=== PATIENT | female | born 1995 | race Caucasian/White ===

== ENCOUNTER → 2019-04-25 | Outpatient (CLI) | payer MEDICAID | LOC: CARD 08:39 | PROVIDERS: ATTEND Family Medicine | DX: R00.0 Tachycardia, unspecified (principal) | CPT/HCPCS: 93306 ==

== ENCOUNTER → 2019-10-31 | Outpatient (CLI) | payer MEDICAID | END | disposition home or self-care (01) | LOC: PREOP 05:37 | PROVIDERS: ATTEND Surgery | DX: Z01.818 Encounter for other preprocedural examination (principal) ==

== ENCOUNTER 2020-03-02 05:35 | Outpatient (RCR) | payer MEDICAID | END 2020-05-30 | disposition home or self-care (01) | LOC: PREOP 05:35 | PROVIDERS: ATTEND Surgery | DX: Z01.818 Encounter for other preprocedural examination (principal) ==

== ENCOUNTER 2020-03-26 05:48 | Outpatient (RCR) | payer MEDICAID | END 2020-06-24 | disposition home or self-care (01) | LOC: PREOP 05:48 | PROVIDERS: ATTEND Surgery | DX: Z01.818 Encounter for other preprocedural examination (principal) ==

== ENCOUNTER → 2020-11-01 | Outpatient (CLI) | payer MEDICAID ==
[2020-11-01 17:03] LABS: BASOPHILS % (AUTO) 0 % (0-10); EOSINOPHILS % (AUTO) 1 % (0-10); HEMATOCRIT 36 % (35-52); HEMOGLOBIN 12.8 G/DL (11.5-16.0); LYMPHOCYTES # (AUTO) 1.5 X 10^3 (1.0-4.0); LYMPHOCYTES % (AUTO) 17 % (12-44); MEAN CORPUSCULAR HEMOGLOBIN 32 PG (25-34); MEAN CORPUSCULAR HGB CONC 35 G/DL (32-36); MEAN CORPUSCULAR VOLUME 90 FL (80-99); MEAN PLATELET VOLUME 9.8 FL (7.4-10.4); MONOCYTES % (AUTO) 4 % (0-12); NEUTROPHILS # (AUTO) 6.6 X 10^3 (1.8-7.8); NEUTROPHILS % (AUTO) 78 % (42-75); PLATELET COUNT 318 10^3/uL (130-400); WHITE BLOOD COUNT 8.5 10^3/uL (4.3-11.0)
[2020-11-01 17:04] LABS: EOSINOPHILS # (AUTO) 0.1 10^3/uL (0.0-0.3); MONOCYTES # (AUTO) 0.3 X 10^3 (0.0-1.0)
[2020-11-01 17:12] LABS: BACTERIA,URINE LARGE /HPF; BILIRUBIN,URINE NEGATIVE (NEGATIVE); CLARITY,URINE SL CLOUDY; COLOR,URINE YELLOW; GLUCOSE, URINE (UA) NEGATIVE (NEGATIVE); KETONES,URINE NEGATIVE (NEGATIVE); LEUKOCYTE ESTERASE ,URINE NEGATIVE (NEGATIVE); NITRITE,URINE NEGATIVE (NEGATIVE); PROTEIN,URINE NEGATIVE (NEGATIVE); RBC,URINE 0-2 /HPF
== END ==
LOC: LAB FS 15:20
PROVIDERS: ATTEND Family Medicine
DX: O99.891 Other specified diseases and conditions complicating pregnancy (principal); R30.9 Painful micturition, unspecified; Z3A.00 Weeks of gestation of pregnancy not specified
CPT/HCPCS: 36415; 80055; 81000; 86703; 86762; 86780; 87088

== ENCOUNTER → 2020-11-19 | Outpatient (CLI) | payer MEDICAID | LOC: LABNPT 15:41 | PROVIDERS: ATTEND Family Medicine | DX: Z33.1 Pregnant state, incidental (principal) | CPT/HCPCS: 87491; 87591 ==

== ENCOUNTER → 2020-11-22 | Outpatient (CLI) | payer MEDICAID ==
[2020-11-22 15:29] LABS: FREE T4 (FREE THYROXINE) 0.9 NG/DL (0.70-1.48)
== END ==
LOC: LAB FS 09:23
PROVIDERS: ATTEND Family Medicine
DX: L65.9 Nonscarring hair loss, unspecified (principal)
CPT/HCPCS: 36415; 84439; 84443

== ENCOUNTER → 2020-12-17 | Outpatient (CLI) | payer MEDICAID | LOC: LAB FS 09:41 | PROVIDERS: ATTEND Family Medicine | DX: Z34.91 Encounter for supervision of normal pregnancy, unspecified, first trimester (principal) | CPT/HCPCS: 36415; 82105; 82677; 84702; 86336; 86695; 86696 ==

== ENCOUNTER → 2021-01-01 | Outpatient (CLI) | payer MEDICAID | LOC: LAB FS 10:30 | PROVIDERS: ATTEND Family Medicine | DX: Z76.89 Persons encountering health services in other specified circumstances (principal); Z20.822 Contact with and (suspected) exposure to COVID-19 | CPT/HCPCS: 87635 ==

== ENCOUNTER → 2021-01-18 | Outpatient (CLI) | payer MEDICAID ==
--- NOTE | 2021-02-07 18:39 | Diagnostic Imaging Report ---
INDICATION: patient, survey. TECHNIQUE: Multiple real-time grayscale images were obtained over the gravid uterus. COMPARISON: None. FINDINGS: A single live intrauterine fetus is seen measuring 23 weeks 0 days in size by composite measurements. The fetus is in breech presentation at this time. Placenta is posterior with no evidence of previa. The distance from the internal os to the tip of the placenta is 8.6 x 6.5 cm. Cervical length is 4.2 cm. heart rate is 144 bpm. Maternal adnexa were not well visualized. survey demonstrates normal appearance of the kidneys and bladder. Normal-appearing stomach was seen. Intracranial ventricles appear normal. Four-chamber heart view and spine views were normal. Three-vessel cord was seen but the cord insertion could not be well visualized due to position. Biometrical measurements are as follows: Biparietal 5.43 cm, age 22 weeks 4 days. Head circumference 21.04 cm, age 23 weeks 1 days. Abdominal circumference 18.06 cm, age 23 weeks 0 days. Femur length 4.09 cm, age 23 weeks 2 days. Sonographic estimate age: 23 weeks 0 days. Sonographic estimated date of delivery: 06/06/2021. Estimated Weight: 558 gm (+/- 82 gm). LMP percentile: 60%. heart rate: 144 beats per minute. number: 1 of 1. IMPRESSION: Single live intrauterine fetus measuring 23 weeks 0 days in size. There is no detectable abnormality, although cord insertion was not well seen due to position. Consider limited follow-up as clinically warranted. The study is otherwise unremarkable. Dictated by: Dictated on workstation # [id number]
== END ==
LOC: RAD FS 11:35
PROVIDERS: ATTEND Family Medicine
DX: Z34.92 Encounter for supervision of normal pregnancy, unspecified, second trimester (principal); Z3A.23 23 weeks gestation of pregnancy

== ENCOUNTER → 2021-02-26 | Outpatient (CLI) | payer MEDICAID | LOC: LAB FS 18:24 | PROVIDERS: ATTEND Family Medicine | DX: U07.1 COVID-19 (principal) | CPT/HCPCS: 36415; 86769 ==

== ENCOUNTER → 2021-03-12 | Outpatient (CLI) | payer MEDICAID ==
[2021-03-12 11:18] LABS: BASOPHILS % (AUTO) 0 % (0-10); EOSINOPHILS % (AUTO) 0 % (0-10); HEMATOCRIT 32 % (35-52); HEMOGLOBIN 11.2 G/DL (11.5-16.0); LYMPHOCYTES # (AUTO) 1.2 X 10^3 (1.0-4.0); LYMPHOCYTES % (AUTO) 17 % (12-44); MEAN CORPUSCULAR HEMOGLOBIN 33 PG (25-34); MEAN CORPUSCULAR HGB CONC 35 G/DL (32-36); MEAN CORPUSCULAR VOLUME 92 FL (80-99); MEAN PLATELET VOLUME 9.4 FL (7.4-10.4); MONOCYTES # (AUTO) 0.2 X 10^3 (0.0-1.0); MONOCYTES % (AUTO) 3 % (0-12); NEUTROPHILS # (AUTO) 5.5 X 10^3 (1.8-7.8); NEUTROPHILS % (AUTO) 79 % (42-75); PLATELET COUNT 274 10^3/uL (130-400)
== END ==
LOC: LAB FS 10:24
PROVIDERS: ATTEND Family Medicine
DX: Z34.91 Encounter for supervision of normal pregnancy, unspecified, first trimester (principal); Z3A.00 Weeks of gestation of pregnancy not specified
CPT/HCPCS: 36415; 82950; 85025; 86592

== ENCOUNTER → 2021-03-18 | Outpatient (CLI) | payer MEDICAID | LOC: LAB FS 10:14 | PROVIDERS: ATTEND Family Medicine | DX: R73.09 Other abnormal glucose (principal) | CPT/HCPCS: 36415; 82951; 82952 ==

== ENCOUNTER 2021-04-03 13:03 | Emergency (ER) | payer MEDICAID ==
[~2021-04-03] VITALS: Ht 154 cm; Wt 100.0 kg
[2021-04-03 13:08] VITALS: BP 152/93
[2021-04-03] MEDS ORDERED: NS IV 1000 ML 1,000 ML IV SCH ×2 (13:30→16:45)
--- NOTE | 2021-04-03 13:32 | ED Cardiac General ---
History of Present Illness General Chief Complaint: Cardiac/General Problems Stated Complaint: ELEV HR Nursing Triage Note: PT REPORTS A RAPID HEART RATE THAT STARTED THIS AM WITH SHORTNESS OF BREATH. HEART RATE 130-165. Source: patient Exam Limitations: no limitations History of Present Illness Date Seen by Provider: Apr 03, 2021 Time Seen by Provider: 13:09 Initial Comments 25-year-old female @31 weeks presents with onset of rapid heart rate this morning around 8 AM. Patient was at home heart rate racing, she checked her pulse it was about 130. She started drinking more water, lay down on her left side and tried rest thinking it would go away, but when she woke up from a nap it was still racing around 130-150. Patient denies any recent illness, fever chills or cough. She does have associated shortness of air while she is having a rapid heart rate. She did receive her second dose of a Covid vaccination yesterday. OB care @ [facility] Allergies and Home Medications Allergies Coded Allergies: No Known Drug Allergies (Unverified , 04/03/21) Patient Home Medication List Home Medication List Reviewed: Yes Review of Systems Review of Systems Constitutional: No chills, No dizziness, No fever, No malaise, No weakness EENTM: No Symptoms Reported Respiratory: See HPI; Denies Cough; SOA at Rest; Denies Stridor, Denies Wheezing Cardiovascular: See HPI; Denies Chest Pain, Denies Edema, Denies Lightheadedness; Palpitations (rapid HR); Denies Syncope Gastrointestinal: Denies Abdominal Pain, Denies Nausea, Denies Poor Appetite, Denies Vomiting Musculoskeletal: No back pain, No joint pain; other (no extremity or calf pain) Skin: No change in color, No lesions, No rash Psychiatric/Neurological: Denies Headache, Denies Numbness, Denies Paresthesia Hematologic/Lymphatic: Denies Anemia, Denies Blood Clots, Denies Easy Bleeding, Denies Easy Bruising, Denies Swollen Glands Past Hvmvnze-Dlymmy-Bktplu Hx Patient Social History Tobacco Use?: No Use of E-Cig and/or Vaping dev: No Substance use?: No Alcohol Use?: No Pt feels they are or have been: No Immunizations Up To Date First/Initial COVID19 Vaccinat: MARCH 2021 Second COVID19 Vaccination Regan: APRIL 02, 2021 COVID19 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 oz. kg; 42.00 BMI Method: General Appearance: No Apparent Distress, WD/WN HEENT: PERRL/EOMI, Normal ENT Inspection Neck: Full Range of Motion, Non Tender, Supple Respiratory: Chest Non Tender, Lungs Clear, Normal Breath Sounds, No Accessory Muscle Use, No Respiratory Distress Cardiovascular: No Edema, No Gallop, No JVD, Tachycardia Gastrointestinal: Non Tender, Soft, Other (gravid - size c/w/d) Extremity: Normal Capillary Refill, Non Tender Neurologic/Psychiatric: Alert, Oriented x3, No Motor/Sensory Deficits, Normal Mood/Affect Skin: Normal Color, Warm/Dry; No Cyanosis, No Erythema Progress/Results/Core Measures Results/Orders Lab Results Laboratory Tests Test 04/03/21 13:25 04/03/21 13:34 Range/Units White Blood Count 6.2 4.3-11.0 10^3/uL Red Blood Count 3.47 L 3.80-5.11 10^6/uL Hemoglobin 11.3 L 11.5-16.0 g/dL Hematocrit 32 L 35-52 % Mean Corpuscular Volume 91 80-99 fL Mean Corpuscular Hemoglobin 33 25-34 pg Mean Corpuscular Hemoglobin Concent 36 32-36 g/dL Red Cell Distribution Width 13.1 10.0-14.5 % Platelet Count 244 130-400 10^3/uL Mean Platelet Volume 9.5 9.0-12.2 fL Immature Granulocyte % (Auto) 0 % Neutrophils (%) (Auto) 89 H 42-75 % Lymphocytes (%) (Auto) 7 L 12-44 % Monocytes (%) (Auto) 3 0-12 % Eosinophils (%) (Auto) 0 0-10 % Basophils (%) (Auto) 0 0-10 % Neutrophils # (Auto) 5.6 1.8-7.8 X 10^3 Lymphocytes # (Auto) 0.5 L 1.0-4.0 X 10^3 Monocytes # (Auto) 0.2 0.0-1.0 X 10^3 Eosinophils # (Auto) 0.0 0.0-0.3 10^3/uL Basophils # (Auto) 0.0 0.0-0.1 10^3/uL Immature Granulocyte # (Auto) 0.0 0.0-0.1 10^3/uL Neutrophils % (Manual) 87 % Lymphocytes % (Manual) 7 % Monocytes % (Manual) 1 % Eosinophils % (Manual) 0 % Basophils % (Manual) 0 % Band Neutrophils 5 % D-Dimer 1.90 H 0.00-0.49 UG/ML Sodium Level 138 135-145 MMOL/L Potassium Level 3.4 L 3.6-5.0 MMOL/L Chloride Level 106 98-107 MMOL/L Carbon Dioxide Level 23 21-32 MMOL/L Anion Gap 9 5-14 MMOL/L Blood Urea Nitrogen 5 L 7-18 MG/DL Creatinine 0.53 L 0.60-1.30 MG/DL Estimat Glomerular Filtration Rate 141 BUN/Creatinine Ratio 9 Glucose Level 115 H 70-105 MG/DL Calcium Level 9.5 8.5-10.1 MG/DL Corrected Calcium 10.0 8.5-10.1 MG/DL Total Bilirubin 0.3 0.1-1.0 MG/DL Aspartate Amino Transf (AST/SGOT) 15 5-34 U/L Alanine Aminotransferase (ALT/SGPT) 15 0-55 U/L Alkaline Phosphatase 72 40-136 U/L Total Protein 6.1 L 6.4-8.2 GM/DL Albumin 3.4 3.2-4.5 GM/DL Urine Color YELLOW Urine Clarity CLEAR Urine pH 7.5 5-9 Urine Specific [place] 1.010 L 1.016-1.022 Urine Protein NEGATIVE NEGATIVE Urine Glucose (UA) NEGATIVE NEGATIVE Urine Ketones NEGATIVE NEGATIVE Urine Nitrite NEGATIVE NEGATIVE Urine Bilirubin NEGATIVE NEGATIVE Urine Urobilinogen 0.2 < = 1.0 MG/DL Urine Leukocyte Esterase NEGATIVE NEGATIVE Urine RBC (Auto) NEGATIVE NEGATIVE Urine RBC RARE /HPF Urine WBC RARE /HPF Urine Squamous Epithelial Cells 0-2 /HPF Urine Crystals NONE /LPF Urine Bacteria NEGATIVE /HPF Urine Casts NONE /LPF Urine Mucus NEGATIVE /LPF Urine Culture Indicated NO My Orders Orders - ROVENSTINE,EDI L DO Ed Iv/Invasive Line Start (04/03/21 13:15) Cbc With Automated Diff (04/03/21 13:15) Comprehensive Metabolic Panel (04/03/21 13:15) Fibrin Degradation Products (04/03/21 13:15) Chest 1 View Ap/Pa Only (04/03/21 13:15) Ekg Tracing (04/03/21 13:15) Urinalysis (04/03/21 13:15) Ns Iv 1000 Ml (Sodium Chloride 0.9%) (04/03/21 13:30) Manual Differential (04/03/21 13:25) Enoxaparin Injection (Lovenox Injection) (04/03/21 14:15) Ct Angio Chest W (04/03/21 14:21) Iohexol Injection (Omnipaque 350 Mg/Ml 1 (04/03/21 14:45) Di Iv Start (Assessment) .IV start (04/03/21 14:37) Received Contrast (Hold Metformin- Contr (04/03/21 14:45) Sodium Chloride Flush (Catheter Flush Sy (04/03/21 14:45) Ns (Ivpb) (Sodium Chloride 0.9% Ivpb Bag (04/03/21 14:45) Metoprolol Tartrate Injection (Lopressor (04/03/21 15:15) Metoprolol Tartrate Injection (Lopressor (04/03/21 16:00) Metoprolol Tartrate (Ir) Tab (Lopressor (04/03/21 16:00) Acetaminophen Tablet (Tylenol Tablet) (04/03/21 16:30) Ns Iv 1000 Ml (Sodium Chloride 0.9%) (04/03/21 16:45) Metoprolol Tartrate Injection (Lopressor (04/03/21 16:45) Medications Given in ED Current Medications Medications Dose Ordered Sig/Alexander Route Start Time Stop Time Status Last Admin Dose Admin Acetaminophen 1,000 mg ONCE ONCE PO 04/03/21 16:30 04/03/21 16:32 DC 04/03/21 16:34 1,000 MG Enoxaparin Sodium 100 mg ONCE ONCE SC 04/03/21 14:15 04/03/21 14:16 DC 04/03/21 14:20 100 MG Iohexol 100 ml ONCE ONCE IV 04/03/21 14:45 04/03/21 14:46 DC 04/03/21 14:55 100 ML Metoprolol Tartrate 5 mg ONCE ONCE IV 04/03/21 15:15 04/03/21 15:16 DC 04/03/21 15:19 5 MG Metoprolol Tartrate 5 mg ONCE ONCE IV 04/03/21 16:00 04/03/21 16:01 DC 04/03/21 15:58 5 MG Metoprolol Tartrate 5 mg ONCE ONCE IV 04/03/21 16:45 04/03/21 16:49 DC 04/03/21 16:54 5 MG Metoprolol Tartrate 25 mg ONCE ONCE PO 04/03/21 16:00 04/03/21 16:01 DC 04/03/21 15:58 25 MG Sodium Chloride 10 ml NEEDED PRN IV 04/03/21 14:45 04/03/21 17:30 DC 04/03/21 14:55 10 ML Sodium Chloride 100 ml ONCE ONCE IV 04/03/21 14:45 04/03/21 14:46 DC 04/03/21 14:55 100 ML Vital Signs/I&O 04/03/21 13:08 Temp 36.5 Pulse 143 Resp 20 B/P (MAP) 152/93 (112) Pulse Ox 100 O2 Delivery Room Air Blood Pressure Mean: 112 Progress Progress Note : Progress Note Called [facility] @ 1462, spoke to Dr Lara @ 1422.....discussed pt Hx, HPI and findings, rec CT angio to r/o PE. Patient given IV metoprolol 5mg x 3 w minimal slowing of her HR and temporarily. Also given Toprol 25 mg after 2nd IV dose. Pt HR never slowed below 115, and remained consistently 120's - 130's. Some mild SOA, without CP Patient and agree to transfer to [facility] to maintain continuity of care w her OB. Sent be POV, driven by her . awake, alert, VSS w exception of sinus tachycardia and in no distress or imminent danger Initial ECG Impression Date: Apr 03, 2021 Initial ECG Impression Time: 13:10 Initial ECG Rate: 130 Initial ECG Rhythm: S.Tach Initial ECG Intervals: Normal Initial ECG Impression: Normal Initial ECG Comparisson: No Previous ECG Available Comment non-specific T wave changes Diagnostic Imaging Diagonstic Imaging: CT Comments COMPARISON: There is no prior study for comparison. FINDINGS: Heart and mediastinal silhouette are normal in appearance. The lungs are clear. There is no pneumothorax or pleural fluid. IMPRESSION: Negative chest. Dictated by: Dictated on workstation # [id number] Dict: 04/03/21 1334 Trans: 04/03/21 1459 [facility] [id number] Interpreted by: JANETH DE LA GARZA MD Electronically signed by: JANETH DE LA GARZA MD 04/03/21 1459 Date of Exam:04/03/21 CT ANGIO CHEST W INDICATION: Tachycardia, elevated d-dimer. patient. TECHNIQUE: Multiple contiguous axial images were obtained through the chest after uneventful bolus administration of intravenous contrast. 3D reconstructed CTA MIP acquisitions were also performed. Auto Exposure Controls were utilized during the CT exam to meet ALARA standards for radiation dose reduction. COMPARISON: There is no prior CTA chest for comparison. FINDINGS: The pulmonary parenchymal vessels appear well opacified with no filling defects visualized. The thoracic aorta shows no evidence of aneurysm or dissection. The great vessel origins are patent. There is no pleural or pericardial fluid. There are no enlarged nodes in the mediastinum or balta. There are no enlarged axillary nodes or chest wall masses. The visualized portions of the upper abdomen are normal. The lung windows are clear. IMPRESSION: Negative CTA chest. Dictated on workstation # [id number] Dict: 04/03/21 1501 Trans: 04/03/21 1507 [id number] Interpreted by: JANETH DE LA GARZA MD Electronically signed by: Departure Impression Primary Impression: Sinus tachycardia Additional Impressions: Third trimester Elevated d-dimer Disposition: 02 XFER SHT-TRM HOSP Condition: Stable Transfer Transfer Reason: Patient preference (and continuity of OB care) Time Spoke to Accepting Phy: 16:56 Transfer Progress Notes Initial call to [facility] @ 1412 spoke to [facility]person [facility], Dr Lara @ 1422- who rec CTA Called again @ [address] Lara again and she accepts for [facility] to [facility] @ 9434 Departure-Patient Inst. Referrals: SKYLAR JAMES MD (PCP/Family) Primary Care Physician Patient Instructions: Tachycardia (DC) Add. Discharge Instructions: Call your OB doctor, tomorrow morning to discuss follow up and further instructions regarding treating your sinus tachycardia with medication. Return to the nearest ER for worsening of symptoms, chest pain, heart rate not controlled with medication. All discharge instructions reviewed with patient and/or family. Voiced understanding. EDI HEBERT DO Apr 03, 2021 13:32
[2021-04-03 13:40] LABS: HEMATOCRIT 32 % (35-52); HEMOGLOBIN 11.3 g/dL (11.5-16.0); MEAN CORPUSCULAR HEMOGLOBIN 33 pg (25-34); MEAN CORPUSCULAR HGB CONC 36 g/dL (32-36); MEAN CORPUSCULAR VOLUME 91 fL (80-99); MEAN PLATELET VOLUME 9.5 fL (9.0-12.2); PLATELET COUNT 244 10^3/uL (130-400); WHITE BLOOD COUNT 6.2 10^3/uL (4.3-11.0)
--- NOTE | 2021-04-03 13:41 | Diagnostic Imaging Report ---
INDICATION: Tachycardia and shortness of breath. TECHNIQUE: Frontal chest obtained at 01:14 p.m. COMPARISON: There is no prior study for comparison. FINDINGS: Heart and mediastinal silhouette are normal in appearance. The lungs are clear. There is no pneumothorax or pleural fluid. IMPRESSION: Negative chest. Dictated by: Dictated on workstation # [id number]
[2021-04-03 13:45] LABS: BASOPHILS % (AUTO) 0 % (0-10); EOSINOPHILS % (AUTO) 0 % (0-10); LYMPHOCYTES # (AUTO) 0.5 X 10^3 (1.0-4.0); LYMPHOCYTES % (AUTO) 7 % (12-44); MONOCYTES # (AUTO) 0.2 X 10^3 (0.0-1.0); MONOCYTES % (AUTO) 3 % (0-12); NEUTROPHILS # (AUTO) 5.6 X 10^3 (1.8-7.8); NEUTROPHILS % (AUTO) 89 % (42-75)
[2021-04-03 13:52] LABS: BACTERIA,URINE NEGATIVE /HPF; BILIRUBIN,URINE NEGATIVE (NEGATIVE); CLARITY,URINE CLEAR; COLOR,URINE YELLOW; GLUCOSE, URINE (UA) NEGATIVE (NEGATIVE); KETONES,URINE NEGATIVE (NEGATIVE); LEUKOCYTE ESTERASE ,URINE NEGATIVE (NEGATIVE); NITRITE,URINE NEGATIVE (NEGATIVE); PH,URINE 7.5 (5-9); PROTEIN,URINE NEGATIVE (NEGATIVE); RBC,URINE RARE /HPF; SQUAMOUS EPITHELIAL CELL,UR 0-2 /HPF; WBC,URINE RARE /HPF
[2021-04-03 14:04] LABS: BAND NEUTROPHILS 5 %; BASOPHILS % (MANUAL) 0 %; EOSINOPHILS % (MANUAL) 0 %; LYMPHOCYTES % (MANUAL) 7 %; MONOCYTES % (MANUAL) 1 %; NEUTROPHILS % (MANUAL) 87 %
[2021-04-03 14:06] LABS: ALBUMIN 3.4 GM/DL (3.2-4.5); BILIRUBIN,TOTAL 0.3 MG/DL (0.1-1.0); CALCIUM 9.5 MG/DL (8.5-10.1); CREATININE SERUM 0.53 MG/DL (0.60-1.30); POTASSIUM 3.4 MMOL/L (3.6-5.0); TOTAL PROTEIN 6.1 GM/DL (6.4-8.2)
[2021-04-03] MEDS ORDERED: ENOXAPARIN 100 MG/1 ML (LOVENOX) SYR SC ONE (14:15)
[2021-04-03] MEDS ORDERED: IOHEXOL 350 MG/ML 100 ML (OMNIPAQUE 350) VIAL IV ONE (14:45)
[2021-04-03] MEDS ORDERED: NS 100 ML (IVPB) BAG IV ONE (14:45)
[2021-04-03] MEDS ORDERED: HOLD METFORMIN - RECEIVED CONTRAST 20 ML VIAL IV SCH (14:45)
[2021-04-03] MEDS ORDERED: CATHETER FLUSH 10 ML SYR IV PRN (14:45)
--- NOTE | 2021-04-03 15:07 | Diagnostic Imaging Report ---
INDICATION: Tachycardia, elevated d-dimer. patient. TECHNIQUE: Multiple contiguous axial images were obtained through the chest after uneventful bolus administration of intravenous contrast. 3D reconstructed CTA MIP acquisitions were also performed. Auto Exposure Controls were utilized during the CT exam to meet ALARA standards for radiation dose reduction. COMPARISON: There is no prior CTA chest for comparison. FINDINGS: The pulmonary parenchymal vessels appear well opacified with no filling defects visualized. The thoracic aorta shows no evidence of aneurysm or dissection. The great vessel origins are patent. There is no pleural or pericardial fluid. There are no enlarged nodes in the mediastinum or balta. There are no enlarged axillary nodes or chest wall masses. The visualized portions of the upper abdomen are normal. The lung windows are clear. IMPRESSION: Negative CTA chest. Dictated by: Dictated on workstation # [id number]
[2021-04-03] MEDS ORDERED: meTOprolol 5 MG/5 ML (LOPRESSOR) VIAL IV ONE ×3 (15:15→16:45)
[2021-04-03] MEDS ORDERED: meTOprolol TARTRATE 25 MG (LOPRESSOR) TABLET PO ONE (16:00)
[2021-04-03] MEDS ORDERED: ACETAMINOPHEN 500 MG TAB (TYLENOL) PO ONE (16:30)
== END 2021-04-03 17:30 | disposition short-term general hospital (02) ==
LOC: EDUNIT# 13:03 → ER FS 13:05
DX: O99.413 Diseases of the circulatory system complicating pregnancy, third trimester (principal); R00.0 Tachycardia, unspecified; R79.1 Abnormal coagulation profile; Z3A.31 31 weeks gestation of pregnancy
CPT/HCPCS: 36415; 71045; 71275; 80053; 81000; 85007; 85027; 85379; 93005

== ENCOUNTER 2021-05-24 20:06 | Emergency (ER) | payer MEDICAID, OTHER ==
[2021-05-24] MEDS ORDERED: hydrALAZINE (APESOLINE) 20 MG/ML VIAL IV ONE (20:30)
--- NOTE | 2021-05-24 20:30 | ED Cardiac General ---
History of Present Illness General Chief Complaint: Cardiac/General Problems Stated Complaint: HYPERTENSION Nursing Triage Note: Pt gave on Thursday at 38 weeks. Pt had hypertension throughout and states her bp has been running high tonight. Pt called her OB at [facility] [place] and they advised her to get checked out. Pt states she had a mild headache but took Naproxen at home. Pt states she was unsure if some of it was caused from anxiety so she took a Hydroxyzine. Source: patient Exam Limitations: no limitations History of Present Illness Date Seen by Provider: May 24, 2021 Time Seen by Provider: 20:00 Initial Comments Patient is a 25-year-old, G2, P1, 6-day patient induced at 38 weeks for preeclampsia who presents with mild dull frontal/sinus headache with nasal congestion rhinorrhea and elevated blood pressure 160/90. Patient was induced and not started on blood pressure medications. She denies blurred vision, shortness of breath, chest pain, leg swelling or worsening vaginal bleeding. No abdominal or pelvic pain cramping. No other symptoms or complaints. Patient is not currently on blood pressure medication but did take naproxen for her headache which improved. She contacted her on-call OB and was instructed to come to the emergency department. Timing/Duration: 24 hours Severity: mild Location: other Activities at Onset: other Prior CP/Workup: other Modifying Factors: improves with other Associated Systoms: Other Allergies and Home Medications Allergies Coded Allergies: Sulfa (Sulfonamide Antibiotics) (Verified Allergy, Unknown, 05/24/21) Patient Home Medication List Home Medication List Reviewed: Yes Review of Systems Review of Systems Constitutional: no symptoms reported, see HPI EENTM: See HPI Respiratory: See HPI Cardiovascular: See HPI Gastrointestinal: See HPI Genitourinary: See HPI Musculoskeletal: see HPI Skin: see HPI Psychiatric/Neurological: See HPI Endocrine: See HPI Hematologic/Lymphatic: See HPI Past Afkkshp-[id number]-Alfumq Hx Patient Social History Tobacco Use?: Yes Use of E-Cig and/or Vaping dev: No Substance use?: No Alcohol Use?: No Pt feels they are or have been: No Immunizations Up To Date First/Initial COVID19 Vaccinat: MARCH 2021 Second COVID19 Vaccination Regan: APRIL 02, 2021 Physical Exam Vital Signs Vital Signs - First Documented 05/24/21 20:10 Pulse 75 Resp 18 B/P (MAP) 159/93 (115) Pulse Ox 99 O2 Delivery Room Air Capillary Refill : Less Than 3 Seconds Height, Weight, BMI Height: '" Weight: lbs. oz. kg; 42.00 BMI Method: General Appearance: No Apparent Distress, WD/WN HEENT: PERRL/EOMI, Pharynx Normal, Other (Sinus congestion, rhinorrhea) Neck: Full Range of Motion, Non Tender, Supple Respiratory: Lungs Clear Cardiovascular: Regular Rate, Rhythm Gastrointestinal: Non Tender, Soft Extremity: Non Tender, No Calf Tenderness; No Swelling Neurologic/Psychiatric: Alert, Oriented x3, Normal Mood/Affect Skin: Normal Color Focused Exam Sepsis Stage: Ruled Out Progress/Results/Core Measures Results/Orders Lab Results Laboratory Tests Test 05/24/21 20:30 05/24/21 21:12 Range/Units White Blood Count 10.0 4.3-11.0 10^3/uL Red Blood Count 3.71 L 3.80-5.11 10^6/uL Hemoglobin 12.1 11.5-16.0 g/dL Hematocrit 34 L 35-52 % Mean Corpuscular Volume 92 80-99 fL Mean Corpuscular Hemoglobin 33 25-34 pg Mean Corpuscular Hemoglobin Concent 35 32-36 g/dL Red Cell Distribution Width 12.9 10.0-14.5 % Platelet Count 336 130-400 10^3/uL Mean Platelet Volume 9.5 9.0-12.2 fL Immature Granulocyte % (Auto) 0 % Neutrophils (%) (Auto) 72 42-75 % Lymphocytes (%) (Auto) 21 12-44 % Monocytes (%) (Auto) 6 0-12 % Eosinophils (%) (Auto) 1 0-10 % Basophils (%) (Auto) 0 0-10 % Neutrophils # (Auto) 7.1 1.8-7.8 X 10^3 Lymphocytes # (Auto) 2.1 1.0-4.0 X 10^3 Monocytes # (Auto) 0.6 0.0-1.0 X 10^3 Eosinophils # (Auto) 0.1 0.0-0.3 10^3/uL Basophils # (Auto) 0.0 0.0-0.1 10^3/uL Immature Granulocyte # (Auto) 0.0 0.0-0.1 10^3/uL Sodium Level 143 135-145 MMOL/L Potassium Level 3.7 3.6-5.0 MMOL/L Chloride Level 107 98-107 MMOL/L Carbon Dioxide Level 24 21-32 MMOL/L Anion Gap 12 5-14 MMOL/L Blood Urea Nitrogen 14 7-18 MG/DL Creatinine 0.76 0.60-1.30 MG/DL Estimat Glomerular Filtration Rate 93 BUN/Creatinine Ratio 18 Glucose Level 92 70-105 MG/DL Calcium Level 9.4 8.5-10.1 MG/DL Corrected Calcium 9.9 8.5-10.1 MG/DL Total Bilirubin 0.3 0.1-1.0 MG/DL Aspartate Amino Transf (AST/SGOT) 15 5-34 U/L Alanine Aminotransferase (ALT/SGPT) 20 0-55 U/L Alkaline Phosphatase 103 40-136 U/L Total Protein 6.5 6.4-8.2 GM/DL Albumin 3.4 3.2-4.5 GM/DL My Orders Orders - WU GUDINO DO Cbc With Automated Diff (05/24/21 20:16) Comprehensive Metabolic Panel (05/24/21 20:16) Hydralazine Injection (Apresoline Inject (05/24/21 20:30) Ed Iv/Invasive Line Start (05/24/21 20:22) Ua Culture If Indicated (05/24/21 20:26) Medications Given in ED Current Medications Medications Dose Ordered Sig/Alexander Route Start Time Stop Time Status Last Admin Dose Admin Hydralazine HCl 10 mg ONCE ONCE IV 05/24/21 20:30 05/24/21 20:32 DC 05/24/21 20:31 10 MG Vital Signs/I&O 05/24/21 20:10 Pulse 75 Resp 18 B/P (MAP) 159/93 (115) Pulse Ox 99 O2 Delivery Room Air Blood Pressure Mean: 115 Departure Communication (Admissions) Mild frontal headache with sinus symptoms. Likely pressure/sinus related. Blood pressure 160/94. Hydralazine given. No shortness of breath leg swelling. Will obtain basic labs. Anticipate discharge home with monitoring if lab work is reassuring with OB follow-up. Impression Primary Impression: Elevated blood pressure reading Additional Impression: Sinus headache Disposition: 01 HOME, SELF-CARE Condition: Stable Departure-Patient Inst. Decision time for Depature: 21:22 Referrals: SKYLAR JAMES MD (PCP) Primary Care Physician HONEY HAMPTON DO (Family) Primary Care Physician Patient Instructions: High Blood Pressure in Adults, Sinus Headache (DC) Add. Discharge Instructions: You were evaluated in the emergency department for headache sinus congestion and high blood pressure in the setting of recent . Lab work was performed and is reassuring. Please continue [id number] NSAIDs for pain and check daily blood pressures. Follow-up with your OB for further recommendations. Return to the ED if new or worsening symptoms. All discharge instructions reviewed with patient and/or family. Voiced understanding. WU GUDINO DO May 24, 2021 20:29
[2021-05-24 20:41] LABS: BASOPHILS % (AUTO) 0 % (0-10); EOSINOPHILS % (AUTO) 1 % (0-10); HEMATOCRIT 34 % (35-52); HEMOGLOBIN 12.1 g/dL (11.5-16.0); LYMPHOCYTES # (AUTO) 2.1 X 10^3 (1.0-4.0); LYMPHOCYTES % (AUTO) 21 % (12-44); MEAN CORPUSCULAR HEMOGLOBIN 33 pg (25-34); MEAN CORPUSCULAR HGB CONC 35 g/dL (32-36); MEAN CORPUSCULAR VOLUME 92 fL (80-99); MEAN PLATELET VOLUME 9.5 fL (9.0-12.2); MONOCYTES % (AUTO) 6 % (0-12); NEUTROPHILS # (AUTO) 7.1 X 10^3 (1.8-7.8); NEUTROPHILS % (AUTO) 72 % (42-75); PLATELET COUNT 336 10^3/uL (130-400)
[2021-05-24 20:42] LABS: EOSINOPHILS # (AUTO) 0.1 10^3/uL (0.0-0.3); MONOCYTES # (AUTO) 0.6 X 10^3 (0.0-1.0)
[2021-05-24 21:01] LABS: BILIRUBIN,TOTAL 0.3 MG/DL (0.1-1.0); CALCIUM 9.4 MG/DL (8.5-10.1); CREATININE SERUM 0.76 MG/DL (0.60-1.30); POTASSIUM 3.7 MMOL/L (3.6-5.0); TOTAL PROTEIN 6.5 GM/DL (6.4-8.2)
[2021-05-24 21:02] LABS: ALBUMIN 3.4 GM/DL (3.2-4.5)
[2021-05-24 21:19] LABS: BILIRUBIN,URINE NEGATIVE (NEGATIVE); GLUCOSE, URINE (UA) NEGATIVE (NEGATIVE); KETONES,URINE TRACE (NEGATIVE); LEUKOCYTE ESTERASE ,URINE 3+ (NEGATIVE); NITRITE,URINE NEGATIVE (NEGATIVE); PH,URINE 7.5 (5-9); PROTEIN,URINE 1+ (NEGATIVE)
[2021-05-24 21:24] VITALS: BP 134/76
[2021-05-24 21:28] LABS: COLOR,URINE RED
[2021-05-24 21:29] LABS: BACTERIA,URINE TRACE /HPF; CLARITY,URINE TURBID; RBC,URINE >100 /HPF; SQUAMOUS EPITHELIAL CELL,UR 0-2 /HPF; WBC,URINE 25-50 /HPF
== END 2021-05-24 21:38 | disposition home or self-care (01) ==
LOC: EDUNIT# 20:06 → ER FS 20:07
DX: R03.0 Elevated blood-pressure reading, without diagnosis of hypertension (principal); R51.9 Headache, unspecified; Z72.0 Tobacco use
CPT/HCPCS: 36415; 80053; 81000; 85025; 87088; 96374

== ENCOUNTER → 2021-09-03 | Outpatient (CLI) | payer BC, OTHER | LOC: LABNPT 15:04 | PROVIDERS: ATTEND Family Medicine | DX: U07.1 COVID-19 (principal) | CPT/HCPCS: 87635 ==

== ENCOUNTER 2022-09-22 18:58 | Emergency (ER) | payer BC ==
[~2022-09-22] VITALS: Ht 157.4 cm; Wt 69.5 kg
[2022-09-22] MEDS ORDERED: KETOROLAC 30 MG/ML VIAL IVP ONE (19:15)
[2022-09-22] MEDS ORDERED: NS IV 1000 ML 1,000 ML IV SCH ×2 (19:15→20:30)
[2022-09-22] MEDS ORDERED: PROCHLORPERAZINE 10 MG/2ML INJ (COMPAZINE) IV ONE (19:15)
[2022-09-22] MEDS ORDERED: FAMOTIDINE 20MG/2ML IV (PEPCID) IVP ONE (19:15)
[2022-09-22 19:32] LABS: BASOPHILS % (AUTO) 0 % (0-10); EOSINOPHILS # (AUTO) 0.1 10^3/uL (0.0-0.3); EOSINOPHILS % (AUTO) 1 % (0-10); HEMATOCRIT 42 % (35-52); HEMOGLOBIN 14.8 g/dL (11.5-16.0); LYMPHOCYTES % (AUTO) 13 % (12-44); MEAN CORPUSCULAR HEMOGLOBIN 32 pg (25-34); MEAN CORPUSCULAR HGB CONC 35 g/dL (32-36); MEAN CORPUSCULAR VOLUME 90 fL (80-99); MEAN PLATELET VOLUME 9.9 fL (9.0-12.2); MONOCYTES # (AUTO) 0.4 10^3/uL (0.0-1.0); MONOCYTES % (AUTO) 5 % (0-12); NEUTROPHILS # (AUTO) 6.2 10^3/uL (1.8-7.8); NEUTROPHILS % (AUTO) 80 % (42-75); PLATELET COUNT 313 10^3/uL (130-400); WHITE BLOOD COUNT 7.7 10^3/uL (4.3-11.0)
[2022-09-22 19:52] LABS: BUN/CREATININE RATIO 19; CALCIUM 9.4 MG/DL (8.5-10.1); CARBON DIOXIDE 23 MMOL/L (21-32); CHLORIDE 105 MMOL/L (98-107); CREATININE SERUM 0.63 MG/DL (0.60-1.30); GFR ESTIMATED 125; GLUCOSE 98 MG/DL (70-105); POTASSIUM 3.6 MMOL/L (3.6-5.0); SODIUM 139 MMOL/L (135-145)
[2022-09-22 19:53] LABS: ALANINE AMINOTRANSFERASE 17 U/L (0-55); ALBUMIN 4.6 GM/DL (3.2-4.5); ALKALINE PHOSPHATASE 58 U/L (40-136); AMYLASE 61 U/L (25-125); BILIRUBIN,TOTAL 0.5 MG/DL (0.1-1.0); TOTAL PROTEIN 7.2 GM/DL (6.4-8.2)
--- NOTE | 2022-09-22 20:25 | ED Abdominal Pain ---
General Chief Complaint: Abdominal/GI Problems Stated Complaint: ABD PAIN/NAUSEA Source of Information: Patient Exam Limitations: No Limitations History of Present Illness Date Seen by Provider: Sep 22, 2022 Time Seen by Provider: 19:20 Initial Comments Patient is a 26-year-old female with history of gastric sleeve who presents with multiple episodes of watery diarrhea with nausea and vomiting after taking a single dose of doxycycline 10 hours prior to ED arrival. Patient had been diagnosed with urinary tract infection earlier today. She reports mid epigastric/right upper quadrant pain/tenderness. She denies fever chills, sweats, flank pain. No hematemesis coffee-ground emesis, melena or hematochezia. She does report dizziness upon standing and has not been able to tolerate oral fluids. She did take Zofran prior to ED arrival. Patient works in a healthcare setting. No prior abdominal surgery. Timing/Duration: 12 Hours Severity/Quality: Mild Location: Other Radiation: Other Activities at Onset: Other Modifying Factors: Improves With Other Associated Symptoms: Other Allergies and Home Medications Allergies Coded Allergies: Sulfa (Sulfonamide Antibiotics) (Verified Allergy, Unknown, 05/24/21) Patient Home Medication List Home Medication List Reviewed: Yes Review of Systems Review of Systems Constitutional: see HPI EENTM: See HPI Respiratory: See HPI Cardiovascular: See HPI Gastrointestinal: See HPI Genitourinary: See HPI Musculoskeletal: see HPI Skin: see HPI Psychiatric/Neurological: See HPI Endocrine: See HPI Hematologic/Lymphatic: See HPI All Other Systems Reviewed Negative Unless Noted: No Past Kldtbcy-Bzvftd-Fgaqbo Hx Patient Social History Tobacco Use?: No Immunizations Up To Date First/Initial COVID19 Vaccinat: MARCH 2021 Second COVID19 Vaccination Regan: APRIL 02, 2021 Physical Exam Vital Signs Capillary Refill : Height/Weight/BMI Height: '" Weight: lbs. oz. 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, no motor/sensory deficits, alert, oriented x 3 Skin: normal color Focused Exam Sepsis Stage: Ruled Out Progress/Results/Core Measures Results/Orders Lab Results Laboratory Tests Test 09/22/22 19:15 Range/Units White Blood Count 7.7 4.3-11.0 10^3/uL Red Blood Count 4.70 3.80-5.11 10^6/uL Hemoglobin 14.8 11.5-16.0 g/dL Hematocrit 42 35-52 % Mean Corpuscular Volume 90 80-99 fL Mean Corpuscular Hemoglobin 32 25-34 pg Mean Corpuscular Hemoglobin Concent 35 32-36 g/dL Red Cell Distribution Width 12.3 10.0-14.5 % Platelet Count 313 130-400 10^3/uL Mean Platelet Volume 9.9 9.0-12.2 fL Immature Granulocyte % (Auto) 0 % Neutrophils (%) (Auto) 80 H 42-75 % Lymphocytes (%) (Auto) 13 12-44 % Monocytes (%) (Auto) 5 0-12 % Eosinophils (%) (Auto) 1 0-10 % Basophils (%) (Auto) 0 0-10 % Neutrophils # (Auto) 6.2 1.8-7.8 10^3/uL Lymphocytes # (Auto) 1.0 1.0-4.0 10^3/uL Monocytes # (Auto) 0.4 0.0-1.0 10^3/uL Eosinophils # (Auto) 0.1 0.0-0.3 10^3/uL Basophils # (Auto) 0.0 0.0-0.1 10^3/uL Immature Granulocyte # (Auto) 0.0 0.0-0.1 10^3/uL Sodium Level 139 135-145 MMOL/L Potassium Level 3.6 3.6-5.0 MMOL/L Chloride Level 105 98-107 MMOL/L Carbon Dioxide Level 23 21-32 MMOL/L Anion Gap 11 5-14 MMOL/L Blood Urea Nitrogen 12 7-18 MG/DL Creatinine 0.63 0.60-1.30 MG/DL Estimat Glomerular Filtration Rate 125 BUN/Creatinine Ratio 19 Glucose Level 98 70-105 MG/DL Calcium Level 9.4 8.5-10.1 MG/DL Corrected Calcium 8.5-10.1 MG/DL Total Bilirubin 0.5 0.1-1.0 MG/DL Aspartate Amino Transf (AST/SGOT) 19 5-34 U/L Alanine Aminotransferase (ALT/SGPT) 17 0-55 U/L Alkaline Phosphatase 58 40-136 U/L Total Protein 7.2 6.4-8.2 GM/DL Albumin 4.6 H 3.2-4.5 GM/DL Amylase Level 61 25-125 U/L My Orders Orders - WU GUDINO Cbc With Automated Diff (09/22/22 19:10) Comprehensive Metabolic Panel (09/22/22 19:10) Ns Iv 1000 Ml (Sodium Chloride 0.9%) (09/22/22 19:15) Amylase (09/22/22 19:10) Prochlorperazine Injection (Compazine In (09/22/22 19:15) Ketorolac Injection (Toradol Injection) (09/22/22 19:15) Famotidine Injection (Pepcid Injection) (09/22/22 19:15) Rocephin 1gm/50 Ml Iv (1xdose) (09/22/22 20:30) Normal Saline Bolus 1,000ml (09/22/22 20:30) Medications Given in ED Current Medications Medications Dose Ordered Sig/Alexander Route Start Time Stop Time Status Last Admin Dose Admin Famotidine 20 mg ONCE ONCE IVP 09/22/22 19:15 09/22/22 19:16 DC 09/22/22 19:38 20 MG Ketorolac Tromethamine 30 mg ONCE ONCE IVP 09/22/22 19:15 09/22/22 19:16 DC 09/22/22 19:38 30 MG Prochlorperazine Edisylate 10 mg ONCE ONCE IV 09/22/22 19:15 09/22/22 19:16 DC 09/22/22 19:38 10 MG Departure Communication (Admissions) IV fluids, antiemetics and pain medications with clinical improvement abdomen remains soft, nonsurgical. Labs work reviewed and reassuring. Patient was dizziness resolved. Antibiotics given for treatment of urinary tract infection. Recommendations are supportive care watchful waiting and PCP follow-up Impression Primary Impression: Vomiting and diarrhea Additional Impression: Abdominal pain Disposition: HOME, SELF-CARE Condition: Stable Departure-Patient Inst. Decision time for Depature: 20:23 Referrals: SKYLAR JAMES MD (PCP/Family) Primary Care Physician Patient Instructions: Abdominal Pain, Adult ED, Nausea and Vomiting, Adult (DC), Diarrhea, Adult ED Add. Discharge Instructions: You were evaluated in the emergency department for abdominal pain and vomiting and diarrhea. Lab work was performed and is nondiagnostic. Your symptoms may be related to antibiotic use. Please discontinue doxycycline, increase fluids and continue home nausea medication. Use Imodium OTC as needed for diarrhea. If you develop new or worsening, return to the emergency department All discharge instructions reviewed with patient and/or family. Voiced understanding. Work/School Note: Family Work Note Patient Received Medical Care In the Emergency Department On: Sep 22, 2022 Patient Will Be Able to Return to Work/School On: Sep 24, 2022 Patient Restrictions: No restrictions WU GUDINO DO Sep 22, 2022 20:25
[2022-09-22] MEDS ORDERED: cefTRIAXone 1 GM PRE-MIX 50 ML IV ONE (20:30)
[2022-09-22 20:45] VITALS: BP 124/81
== END 2022-09-22 20:45 | disposition home or self-care (01) ==
LOC: EDUNIT# 18:58 → ER FS 19:00
DX: R11.2 Nausea with vomiting, unspecified (principal); R19.7 Diarrhea, unspecified; R10.13 Epigastric pain; N39.0 Urinary tract infection, site not specified; Z88.2 Allergy status to sulfonamides
CPT/HCPCS: 36415; 80053; 82150; 85025; 99281